=== PATIENT | male | born 2000 | race Two or more races ===

== ENCOUNTER 2023-06-02 22:10 | Inpatient (IN) | payer OTHER ==
[~2023-06-02] VITALS: Ht 177.8 cm; Wt 84.4 kg
[2023-06-02] MEDS ORDERED: ROCURONIUM 10MG/ML 10ML VIAL IV ONE (22:14)
[2023-06-02] MEDS ORDERED: ETOMIDATE (2MG/ML) 20ML VIAL IV ONE (22:14)
[2023-06-02] MEDS ORDERED: NALOXONE HCL 1MG/ML 2ML SYRINGE ONE (22:17)
[2023-06-02] MEDS ORDERED: NALOXONE HCL 0.4 MG/ML VIAL ONE (22:19)
[2023-06-02 23:00] VITALS: O2SAT 98
[2023-06-02] MEDS ORDERED: NALOXONE HCL 0.4 MG/ML VIAL IV ONE (23:00)
[2023-06-02] MEDS ORDERED: NALOXONE HCL 1MG/ML 2ML SYRINGE IV ONE ×2 (23:00)
[2023-06-02 23:12] LABS: Basophils # (auto) 0.1 10 ^3/uL (0-0.2); Basophils % (auto) 0.5 % (0.0-2.0); Eosinophils # (auto) 0.1 10 ^3/uL (0-0.8); Eosinophils % (auto) 0.4 % (0.0-7.0); Hematocrit 52.8 % (41.0-53.0); Hemoglobin 17.2 g/dL (13.5-17.5); Lymphocytes # (auto) 2.9 10 ^3/uL (0.4-5.4); Lymphocytes % (auto) 21.1 % (10.0-50.0); Mean Corpuscular Hemoglobin 31.9 pg (28.0-32.0); Mean Corpuscular Hgb Conc. 32.5 g/dL (32.0-36.0); Mean Corpuscular Volume 98.2 fL (80.0-100.0); Monocytes # (auto) 0.4 10 ^3/uL (0-1.3); Neutrophils # (auto) 10.2 10 ^3/uL (1.6-8.6); Red Blood Cells 5.38 10^6/uL (4.5-5.90); Red Cell Distribution Width 14.2 % (11.8-14.3); White Blood Cell 13.6 10^3/uL (4.4-10.8)
[2023-06-02 23:26] LABS: Acetaminophen < 2.0 UG/ML (10.0-20.0)
[2023-06-02 23:29] LABS: Salicylate < 3.0 mg/dL (2.8-20.0)
[2023-06-02 23:45] LABS: Alanine Aminotransferase 274 U/L (7-40); Alkaline Phosphatase 314 U/L (46-116); Aspartate Aminotransferase 814 U/L (13-40); BUN/Creatinine Ratio 9.8 (10.0-20.0); Blood Alcohol < 3.0 mg/dL (<10); Blood Urea Nitrogen 19 mg/dL (9-23); Calcium 9.1 mg/dL (8.7-10.4); Chloride 102 mmol/L (98-107); Glucose 156 mg/dL (74-106); Potassium 4.8 mmol/L (3.5-5.1); Sodium 140 mmol/L (136-145)
[2023-06-02] MEDS ORDERED: SODIUM CHLORIDE 0.9% 2,000 ML IV ONE (23:45)
[2023-06-02 23:46] LABS: Total Protein 7.4 g/dL (5.7-8.2)
[2023-06-03 03:38] LABS: Urine Bacteria NONE SEEN /hpf (None Seen); Urine Blood TRACE /uL (Negative); Urine Clarity HAZY (Clear); Urine Color Yellow (Yellow); Urine Hyaline Cast FEW /lpf (0 - 2); Urine Protein, UAD 1+ (Negative); Urine Specific Gravity 1.016 (1.001-1.035); Urine Urobilinogen Normal (Negative); Urine WBC 6 /hpf (0 - 3)
[2023-06-03 04:05] LABS: Amphetamine Screen, Urine Pos (NEGATIVE); Barbiturate Scree,Urine Neg (NEGATIVE); Benzodiazephine Screen, Urine Pos (NEGATIVE); Cocaine Screen, Urine Neg (NEGATIVE); Opiate Scree,Urine Pos (NEGATIVE); Phencyclidine Screen, Urine Neg (NEGATIVE)
[2023-06-03 04:06] LABS: Cannabinoid Screen, Urine Pos (NEGATIVE)
[2023-06-03] MEDS ORDERED: HEPARIN DRIP/D5W 100UNITS/ML 250 ML IV SCH (04:30)
[2023-06-03] MEDS ORDERED: HEPARIN SODIUM (PORCINE) 5000 UNITS/ML 1ML VIAL IV ONE (04:30)
[2023-06-03] MEDS ORDERED: ONDANSETRON HCL 4 MG/2 ML VIAL IV PRN (05:15)
[2023-06-03] MEDS ORDERED: DEXTROSE (50%) 50ML SYRG IV PRN (05:15)
[2023-06-03] MEDS ORDERED: IBUPROFEN 100MG/5ML ORAL SUSP 100 MG/5 ML UD NG PRN (05:15)
[2023-06-03 05:28] LABS: INR 1.32 (0.9-1.15); Partial Thromboplastin Time 26.6 SEC (24.5-34.5); Prothrombin Time 13.6 sec (9.3-11.8)
[2023-06-03 06:06] LABS: Basophils # (auto) 0 10 ^3/uL (0-0.2); Basophils % (auto) 0.1 % (0.0-2.0); Eosinophils # (auto) 0 10 ^3/uL (0-0.8); Hematocrit 45.2 % (41.0-53.0); Lymphocytes # (auto) 0.6 10 ^3/uL (0.4-5.4); Mean Corpuscular Hemoglobin 31.7 pg (28.0-32.0); Mean Corpuscular Hgb Conc. 33.2 g/dL (32.0-36.0); Mean Corpuscular Volume 95.6 fL (80.0-100.0); Monocytes # (auto) 1.2 10 ^3/uL (0-1.3); Monocytes % (auto) 5.6 % (0.0-12.0); Neutrophils # (auto) 19.6 10 ^3/uL (1.6-8.6); Neutrophils % (auto) 91.3 % (37.0-80.0); Red Blood Cells 4.73 10^6/uL (4.5-5.90); Red Cell Distribution Width 13.6 % (11.8-14.3); White Blood Cell 21.5 10^3/uL (4.4-10.8)
[2023-06-03 06:22] LABS: Alanine Aminotransferase 303 U/L (7-40); Albumin 3.9 g/dL (3.2-4.8); Alkaline Phosphatase 243 U/L (46-116); Aspartate Aminotransferase 676 U/L (13-40); BUN/Creatinine Ratio 17.5 (10.0-20.0); Blood Urea Nitrogen 21 mg/dL (9-23); Calcium 8.2 mg/dL (8.7-10.4); Glucose 100 mg/dL (74-106); Potassium 4.5 mmol/L (3.5-5.1); Sodium 142 mmol/L (136-145)
[2023-06-03 06:23] LABS: Bilirubin, Total 0.3 mg/dL (0.2-1.0); Chloride 112 mmol/L (98-107); Total Protein 5.6 g/dL (5.7-8.2)
[2023-06-03] MEDS ORDERED: cefTRIAXone 1GM/50ML D5W 50 ML IV ONE (06:45)
[2023-06-03] MEDS: SODIUM CHLOR 0.9% PF (SALINE LOCK) 10ML VIAL/SYR IV SCH ×3 (06:55→22:03)
[2023-06-03] MEDS ORDERED: NITROGLYCERIN 0.4 MG SL TAB SL PRN (07:00)
[2023-06-03] MEDS ORDERED: MORPHINE SULFATE INJ 2 MG/ml SYRG IV PRN (07:00)
[2023-06-03 08:00] VITALS: PULSE 83; RESP 19; O2SAT 96
[2023-06-03] MEDS ORDERED: ACCU-CHEK COMFORT CURVE STRIP VI SCH (08:00)
[2023-06-03] MEDS ORDERED: InsuLIN REG 1unit/0.01ml Soln (100units/ml) SC SCH (08:00)
[2023-06-03] MEDS: FAMOTIDINE (10MG/ML) 2ML VL IV SCH ×2 (08:38→22:05)
[2023-06-03] MEDS: cefTRIAXone 1GM/50ML D5W 50 ML IV SCH (08:39)
[2023-06-03] MEDS ORDERED: LORazepam 2MG/ML-1ML VIAL IV PRN (19:30)
[2023-06-03 19:45] VITALS: PULSE 78; RESP 21; O2SAT 96
[2023-06-03] MEDS: FOLIC ACID 1 MG, MULTIPLE VITAMIN 10 ML, MAGNESIUM SULF SDV 50% 8 MEQ, THIAMINE INJ 100... INJ SCH ×5 (21:38)
[2023-06-04 05:36] LABS: Base Excess 0.2 mmol/L (-2.0-2.0)
[2023-06-04 05:58] LABS: Basophils # (auto) 0 10 ^3/uL (0-0.2); Basophils % (auto) 0.3 % (0.0-2.0); Eosinophils # (auto) 0.2 10 ^3/uL (0-0.8); Eosinophils % (auto) 1.8 % (0.0-7.0); Hematocrit 42.8 % (41.0-53.0); Hemoglobin 14.3 g/dL (13.5-17.5); Lymphocytes # (auto) 1.8 10 ^3/uL (0.4-5.4); Lymphocytes % (auto) 17.6 % (10.0-50.0); Mean Corpuscular Hemoglobin 32.3 pg (28.0-32.0); Mean Corpuscular Hgb Conc. 33.5 g/dL (32.0-36.0); Mean Corpuscular Volume 96.3 fL (80.0-100.0); Monocytes # (auto) 0.7 10 ^3/uL (0-1.3); Neutrophils # (auto) 7.4 10 ^3/uL (1.6-8.6); Neutrophils % (auto) 73.3 % (37.0-80.0); Red Blood Cells 4.44 10^6/uL (4.5-5.90); Red Cell Distribution Width 13.8 % (11.8-14.3); White Blood Cell 10.1 10^3/uL (4.4-10.8)
[2023-06-04] MEDS: SODIUM CHLOR 0.9% PF (SALINE LOCK) 10ML VIAL/SYR IV SCH ×3 (06:06→22:19)
[2023-06-04 06:14] LABS: Alanine Aminotransferase 402 U/L (7-40); Albumin 3.6 g/dL (3.2-4.8); Alkaline Phosphatase 200 U/L (46-116); Anion Gap 4.2 (5-15); Aspartate Aminotransferase 537 U/L (13-40); Calcium 8.3 mg/dL (8.5-10.1); Carbon Dioxide 25.8 mmol/L (20-30); Chloride 109 mmol/L (98-107); Cholesterol 84 mg/dL (< 200); Creatine Kinase IFCC 96 U/L (46-171); Glucose 94 mg/dL (74-106); LDL Cholesterol 25 mg/dL (< 100); Magnesium 2.1 mg/dL (1.6-2.6); Potassium 3.7 mmol/L (3.5-5.1); Sodium 139 mmol/L (136-145); Triglycerides 57 mg/dL (< 150)
[2023-06-04 06:15] LABS: Bilirubin, Total 0.7 mg/dL (0.2-1.0); HDL Cholesterol 46 mg/dL (40-59); Total Protein 5.4 g/dL (5.7-8.2)
[2023-06-04 06:18] LABS: Blood Urea Nitrogen 7 mg/dL (9-23)
[2023-06-04] MEDS ORDERED: CALCIUM GLUC 1,000mg/50ml-NS 50 ML IV ONE (08:45)
[2023-06-04] MEDS: FAMOTIDINE (10MG/ML) 2ML VL IV SCH ×2 (08:56→22:07)
[2023-06-04] MEDS: cefTRIAXone 1GM/50ML D5W 50 ML IV SCH (08:56)
[2023-06-04] MEDS: FOLIC ACID 1 MG, MULTIPLE VITAMIN 10 ML, MAGNESIUM SULF SDV 50% 8 MEQ, THIAMINE INJ 100... INJ SCH ×5 (12:00)
[2023-06-04 18:26] VITALS: PULSE 63; RESP 20; O2SAT 96
[2023-06-04 18:27] VITALS: BP 117/65; PULSE 65; RESP 16; TEMP 97.9; O2SAT 98
[2023-06-04 20:00] VITALS: PULSE 63; PULSE 83; RESP 15; O2SAT 97
[2023-06-05] MEDS: SODIUM CHLOR 0.9% PF (SALINE LOCK) 10ML VIAL/SYR IV SCH ×2 (05:08→14:35)
[2023-06-05 05:26] LABS: Alanine Aminotransferase 295 U/L (7-40); Albumin 3.8 g/dL (3.2-4.8); Alkaline Phosphatase 208 U/L (46-116); Anion Gap 5.3 (5-15); Aspartate Aminotransferase 226 U/L (13-40); BUN/Creatinine Ratio 11.5 (10.0-20.0); Bilirubin, Total 0.5 mg/dL (0.2-1.0); Blood Urea Nitrogen 10 mg/dL (9-23); Calcium 8.9 mg/dL (8.7-10.4); Carbon Dioxide 25.7 mmol/L (20-30); Chloride 109 mmol/L (98-107); Glucose 105 mg/dL (74-106); Sodium 140 mmol/L (136-145); Total Protein 5.8 g/dL (5.7-8.2)
[2023-06-05 05:29] LABS: Basophils # (auto) 0 10 ^3/uL (0-0.2); Basophils % (auto) 0.4 % (0.0-2.0); Eosinophils # (auto) 0.2 10 ^3/uL (0-0.8); Eosinophils % (auto) 2.9 % (0.0-7.0); Hematocrit 43.9 % (41.0-53.0); Hemoglobin 14.8 g/dL (13.5-17.5); Lymphocytes # (auto) 1.8 10 ^3/uL (0.4-5.4); Lymphocytes % (auto) 24.1 % (10.0-50.0); Mean Corpuscular Hemoglobin 32.2 pg (28.0-32.0); Mean Corpuscular Hgb Conc. 33.7 g/dL (32.0-36.0); Mean Corpuscular Volume 95.6 fL (80.0-100.0); Monocytes # (auto) 0.7 10 ^3/uL (0-1.3); Monocytes % (auto) 9.5 % (0.0-12.0); Neutrophils # (auto) 4.7 10 ^3/uL (1.6-8.6); Neutrophils % (auto) 63.1 % (37.0-80.0); Red Blood Cells 4.59 10^6/uL (4.5-5.90); White Blood Cell 7.4 10^3/uL (4.4-10.8)
[2023-06-05 05:41] LABS: Free T3 2.29 pg/mL (2.3-4.2)
[2023-06-05 05:42] LABS: Free T4 (Free Thyroxine) 0.94 ng/dL (0.89-1.76)
[2023-06-05 05:43] LABS: T3 Total 0.6 ng/mL (0.60-1.81)
[2023-06-05 08:00] VITALS: PULSE 42
[2023-06-05 08:27] VITALS: O2SAT 96
[2023-06-05 09:00] VITALS: BP 131/86; PULSE 56; RESP 21; TEMP 97.6; O2SAT 98
[2023-06-05] MEDS: FAMOTIDINE (10MG/ML) 2ML VL IV SCH (09:51)
[2023-06-05 13:00] VITALS: BP 118/57; PULSE 52; RESP 21; TEMP 98; O2SAT 99
[2023-06-05] MEDS: FOLIC ACID 1 MG, MULTIPLE VITAMIN 10 ML, MAGNESIUM SULF SDV 50% 8 MEQ, THIAMINE INJ 100... INJ SCH ×5 (13:02)
[2023-06-06 11:01] LABS: Hepatitis B Surface Antibody Negative (Negative)
[2023-06-06 11:13] LABS: Hepatitis B Surface Antigen Negative (Negative)
[2023-06-06 11:34] LABS: Hepatitis C Antibody Negative (Negative)
[2023-06-06 11:40] LABS: Hepatitis A Total Antibody Positive (Negative)
[2023-06-09 15:24] LABS: Hepatitis B Core Total AB Negative (Negative)
== END 2023-06-05 19:04 | disposition left against medical advice (07) | DRG 812 ==
LOC: ER 22:16 → EDBD 22:16 → TELE 06-03 06:56 → TELE-CENTR 06-04 18:17 → TELE-WESTW 06-05 16:13
PROVIDERS: ADMIT Internal Medicine Geriatric Medicine; ATTEND Internal Medicine Geriatric Medicine
PROC: 4A10X4Z Monitoring of Central Nervous Electrical Activity, External Approach (ICD-10-PCS; principal; 2023-06-05)
DX: T40.411A Poisoning by fentanyl or fentanyl analogs, accidental (unintentional), initial encounter (principal); I21.A1 Myocardial infarction type 2; G92.8 Other toxic encephalopathy; G40.409 Other generalized epilepsy and epileptic syndromes, not intractable, without status epilepticus; D72.829 Elevated white blood cell count, unspecified; R79.89 Other specified abnormal findings of blood chemistry; F11.20 Opioid dependence, uncomplicated; F10.239 Alcohol dependence with withdrawal, unspecified; E05.90 Thyrotoxicosis, unspecified without thyrotoxic crisis or storm; Z53.29 Procedure and treatment not carried out because of patient's decision for other reasons; R74.01 Elevation of levels of liver transaminase levels; F32.A Depression, unspecified; Z81.8 Family history of other mental and behavioral disorders; Z82.49 Family history of ischemic heart disease and other diseases of the circulatory system; Z83.3 Family history of diabetes mellitus; Y92.89 Other specified places as the place of occurrence of the external cause
CPT/HCPCS: 36415; 36600; 70450; 70551; 71045; 76705; 80053; 80061; 80307; 80320; 80329; 81001; 82306; 82310; 82550; 82607; 82805; 82962; 83036; 83605; 83735; 83880; 84436; 84439; 84443; 84480; 84481; 84484; 85025; 85610; 85730; 86704; 86706; 86708; 86803; 87340; 93005; 93306; 95819; 96361; 96374; 96375; 96376; 99291; G0378; J0696; J3490